=== PATIENT | female | born 1945 | race Two or more races ===

== ENCOUNTER 2020-07-11 10:33 | Emergency (ER) | payer OTHER ==
[~2020-07-11] VITALS: Ht 160 cm; Wt 90.7 kg
[2020-07-11 10:34] VITALS: BP 134/80
[2020-07-11] MEDS ORDERED: HYDROcodone-ACET 5/325MG TAB PO ONE (11:15)
== END 2020-07-11 13:03 | disposition home or self-care (01) ==
LOC: ER 10:33
DX: M48.061 Spinal stenosis, lumbar region without neurogenic claudication (principal); E11.9 Type 2 diabetes mellitus without complications
CPT/HCPCS: 72131; 93005

== ENCOUNTER 2022-05-20 15:52 | Emergency (ER) | payer OTHER ==
[~2022-05-20] VITALS: Ht 157.5 cm; Wt 90.9 kg
[2022-05-20 16:10] VITALS: BP 114/70
[2022-05-20] MEDS ORDERED: HYDROcodone-ACET 10/325MG TAB PO ONE (16:15)
[2022-05-20] MEDS ORDERED: HYDR-4798 PO (17:07)
== END 2022-05-20 18:42 | disposition left against medical advice (07) ==
LOC: ER 15:52
DX: S20.212A Contusion of left front wall of thorax, initial encounter (principal); E11.9 Type 2 diabetes mellitus without complications; W18.09XA Striking against other object with subsequent fall, initial encounter; Y93.89 Activity, other specified; Y92.89 Other specified places as the place of occurrence of the external cause; Y99.8 Other external cause status
CPT/HCPCS: 71046; 71101

== ENCOUNTER 2023-10-04 22:37 | Emergency (ER) | payer OTHER ==
[~2023-10-04] VITALS: Ht 162.6 cm; Wt 200.0 kg
[~2023-10-04 22:37] MED LIST: HYDR-4798 PO
[2023-10-04 23:03] LABS: Basophils # (auto) 0.1 10 ^3/uL (0-0.2); Eosinophils # (auto) 0.1 10 ^3/uL (0-0.8); Eosinophils % (auto) 0.5 % (0.0-7.0); Hematocrit 48.6 % (36.0-46.0); Hemoglobin 15.9 g/dL (12.2-16.2); Lymphocytes # (auto) 2.1 10 ^3/uL (0.4-5.4); Lymphocytes % (auto) 16.4 % (10.0-50.0); Mean Corpuscular Hemoglobin 29.2 pg (28.0-32.0); Mean Corpuscular Hgb Conc. 32.7 g/dL (32.0-36.0); Mean Corpuscular Volume 89.2 fL (80.0-100.0); Monocytes # (auto) 0.9 10 ^3/uL (0-1.3); Monocytes % (auto) 7.4 % (0.0-12.0); Neutrophils # (auto) 9.4 10 ^3/uL (1.6-8.6); Neutrophils % (auto) 74.7 % (37.0-80.0); Nucleated Red Blood Cells % 0.3 %; Red Blood Cells 5.44 10^6/uL (4.0-5.20); Red Cell Distribution Width 17.3 % (11.8-14.3); White Blood Cell 12.6 10^3/uL (4.4-10.8)
[2023-10-04 23:22] LABS: Alanine Aminotransferase 19 U/L (7-40); Albumin 4.1 g/dL (3.2-4.8); Alkaline Phosphatase 97 U/L (46-116); Anion Gap 12 (5-15); Aspartate Aminotransferase 15 U/L (13-40); BUN/Creatinine Ratio 35.4 (10.0-20.0); Bilirubin, Total 0.8 mg/dL (0.2-1.0); Blood Urea Nitrogen 17 mg/dL (9-23); Calcium 9.5 mg/dL (8.7-10.4); Carbon Dioxide 20 mmol/L (20-30); Chloride 104 mmol/L (98-107); Glucose 131 mg/dL (74-106); Potassium 3.8 mmol/L (3.5-5.1); Sodium 136 mmol/L (136-145)
[2023-10-04 23:38] LABS: Urine Bacteria MANY /hpf (None Seen); Urine Blood Negative /uL (Negative); Urine Clarity Clear (Clear); Urine Color Yellow (Yellow); Urine Mucus FEW (None Seen); Urine Protein, UAD TRACE (Negative); Urine Specific Gravity 1.026 (1.001-1.035); Urine Urobilinogen Normal (Negative); Urine WBC 10 /hpf (0 - 5); Urine pH 5.5 (5.0-9.0)
[2023-10-05] MEDS: ONDANSETRON HCL 4 MG/2 ML VIAL IV ONE (00:07)
[2023-10-05] MEDS: MORPHINE SULFATE 4 MG/ML SYR/VIAL IV ONE ×2 (00:10→03:58)
[2023-10-05] MEDS: cefTRIAXone 1GM/50ML D5W 50 ML IV ONE (01:41)
[2023-10-05] MEDS ORDERED: CEPH500C PO (02:28)
[2023-10-05 03:30] VITALS: TEMP 98.2
[2023-10-05] MEDS ORDERED: SERT-206 PO (05:12)
[2023-10-05 05:30] VITALS: BP 122/60; PULSE 90; RESP 16; O2SAT 95
== END 2023-10-05 05:09 | disposition home or self-care (01) ==
LOC: ER 22:37 → EDBD 22:37 → ER 10-05 05:09
DX: N39.0 Urinary tract infection, site not specified (principal); E11.9 Type 2 diabetes mellitus without complications; M19.90 Unspecified osteoarthritis, unspecified site; Z79.899 Other long term (current) drug therapy
CPT/HCPCS: 36415; 51701; 74176; 80053; 81001; 82550; 83605; 83880; 84484; 85025; 87040; 93005; 96365; 96375; 96376; 99285; J0696; J2270; J2405; 87077; 87186